=== PATIENT | male | born 1950 | race Caucasian/White ===

== ENCOUNTER 2017-04-03 17:27 | Emergency (ER) | payer MEDICARE, BC ==
--- NOTE | 2017-04-03 17:55 | RAD ---
PORTABLE CHEST: 04/03/17 HISTORY: Chest pain. COMPARISON: 03/13/14 study. Herat size is within normal limits. There is elevation of the right hemidiaphragm. There is some line ar scarring in the right base. A dorsal column stimulator is present. IMPRESSION: No active intrathoracic disease. POS: [facility]
[2017-04-03 18:19] LABS: #Eosinphils 0.2 thou/uL (0.0-0.7); #Lymphocytes 1.1 thou/uL (1.20-3.40); #Monocytes 0.6 thou/uL (0.11-0.59); #Neutrophils 2.3 thou/uL (1.40-6.50); %Basophils 0.2 % (0.0-1.0); %Eosinophils 4.8 % (0.0-10.0); %Monocytes 13.1 % (0.0-10.0); Hematocrit 44.9 % (42.0-52.0); Mean Platelet Volume 8.1 fL (7.4-10.4); Red Blood Cell (RBC) Count 4.64 mill/uL (4.70-6.10); White Blood Cell (WBC) Count 4.2 thou/uL (4.8-10.8)
[2017-04-03 18:46] LABS: ALT (SGPT) 22 U/L (8-55); AST (SGOT) 20 U/L (5-34); Alkaline Phosphatase 50 U/L (40-150); Anion Gap 9 mmol/L (10-20); BUN (Urea Nitrogen) 14 mg/dL (8.4-25.7); Bilirubin, Total 0.4 mg/dL (0.2-1.2); CK (CPK) 69 U/L (30-200); Calc. Creatinine Clearance 0 mL/min (70-130); Calcium 9.3 mg/dL (7.8-10.44); Carbon Dioxide 32 mmol/L (23-31); Chloride 100 mmol/L (98-107); Estimated GFR-MDRD 69; Globulin 2.9 g/dL (2.4-3.5); Lipase 17 U/L (8-78); Protein, Total 6.6 g/dL (5.8-8.1)
[2017-04-03 18:49] LABS: Troponin I Less than 0.010 ng/mL (< 0.028)
[2017-04-03] MEDS ORDERED: Ketorolac Tromethamine 30 MG/ML VIAL ONE (19:03)
== END 2017-04-03 19:14 | disposition home or self-care (01) ==
LOC: ERS 17:27
DX: R07.89 Other chest pain (principal); I10 Essential (primary) hypertension; E03.9 Hypothyroidism, unspecified; E11.9 Type 2 diabetes mellitus without complications; E78.5 Hyperlipidemia, unspecified; F41.9 Anxiety disorder, unspecified; F32.9 Major depressive disorder, single episode, unspecified
CPT/HCPCS: 36415; 71010; 80053; 82553; 83690; 84484; 85025; 93005; 94760; 96374; J1885

== ENCOUNTER 2018-06-11 09:23 | Outpatient (CLI) | payer MEDICARE, BC ==
[2018-06-11] MEDS ORDERED: ISOVUE-370 76%-LOCM 1 ML ONE (10:00)
--- NOTE | 2018-06-11 11:34 | CT ---
CT BRAIN WITH AND WITHOUT CONTRAST: DATE: 06-11-17 HISTORY: 68-year-old male with R55 syncope and collapse, C25.2 other specific forms of tremor. TECHNIQUE: Precontrast scan of brain IV injection iodinated contrast media: 70 ml Isovue 370 Postcontrast scan of brain FINDINGS: There is no midline shift or any other mass effect. There is no evidence of acute intracranial hemor rhage, large cortical infarct, obstructive hydrocephalus, or extraaxial fluid collection. There is n o abnormal enhancement or mass. The calvarium is intact. There are two subcentimeter focal hypodense intraaxial lesions adjacent to each other in the left abbott radiata, near the junction with the ant erior portion of the insula and superior border of basal ganglia. These are probable small old lacuna r infarctions although the location is not typical. There is no interval change overall since 09-04-13 . IMPRESSION: 1. No acute or aggressive intracranial findings. 2. Two adjacent tiny old probable lacunae in the left deep cerebral white matter. lee POS: [facility]
== END 2018-06-11 09:24 | disposition home or self-care (01) ==
LOC: BICCT 09:23
PROVIDERS: ATTEND Psychiatry & Neurology Neurology
DX: G25.2 Other specified forms of tremor (principal); R55 Syncope and collapse
CPT/HCPCS: 70470; 82565; Q9966

== ENCOUNTER 2020-12-01 01:36 | Inpatient (IN) | payer MEDICARE, BC ==
[2020-12-01 02:15] LABS: Actual Bicarbonate (HCO3v) 21 mEq/L (22-28); Analyzer IN Cardio ER; Base Excess -2.5 mEq/L (-2.0 to +3.0); Calcium, Ionized (venous) 1.02 mmol/L (1.16-1.32); Chloride (VBG) 106 mmol/L (98-106); Hemoglobin (Hb) 13.6 g/dL (12.6-17.4); Potassium (VBG) 3.82 mmol/L (3.70-5.30); Sodium 138.2 mmol/L (133-146); pH (venous) 7.43 (7.32-7.43)
[2020-12-01 02:18] LABS: #Basophils 0.1 thou/uL (0.0-0.2); #Eosinphils 0.3 thou/uL (0.0-0.7); #Lymphocytes 1.2 thou/uL (1.20-3.40); #Monocytes 0.6 thou/uL (0.11-0.59); #Neutrophils 4.1 thou/uL (1.40-6.50); %Basophils 0.9 % (0.0-1.0); %Eosinophils 4.8 % (0.0-10.0); %Lymphocytes 18.6 % (21.0-51.0); %Monocytes 9.8 % (0.0-10.0); %Neutrophils 65.8 % (42.0-75.0); Hemoglobin 12.6 g/dL (14.0-18.0); Mean Corpuscular HGB CONC 33.5 g/dL (32.0-36.0); Mean Corpuscular Hemoglobin 31.4 pg (27.0-31.0); Mean Corpuscular Volume 93.8 fL (78.0-98.0); Mean Platelet Volume 7.7 fL (7.4-10.4); Platelet Count 185 thou/uL (130-400); RBC Distribution Width 11.9 % (11.5-14.5); White Blood Cell (WBC) Count 6.2 thou/uL (4.8-10.8)
[2020-12-01 02:31] LABS: INR-International Normal Ratio 0.8; Prothrombin Time 11.3 sec (12.0-14.7)
[2020-12-01 02:39] LABS: Phosphorus 4.1 mg/dL (2.3-4.7)
[2020-12-01 02:40] LABS: PTT 19.3 sec (22.9-36.1)
[2020-12-01 02:41] LABS: ALT (SGPT) 21 U/L (8-55); AST (SGOT) 19 U/L (5-34); Albumin 3.6 g/dL (3.4-4.8); Alkaline Phosphatase 65 U/L (40-110); Anion Gap 16 mmol/L (10-20); BUN (Urea Nitrogen) 18 mg/dL (8.4-25.7); Bilirubin, Total 0.2 mg/dL (0.2-1.2); Calc. Creatinine Clearance 0 mL/min (70-130); Carbon Dioxide 21 mmol/L (23-31); Chloride 105 mmol/L (98-107); Globulin 3.4 g/dL (2.4-3.5); Glucose 124 mg/dL (83-110); Lipase 25 U/L (8-78); Magnesium 1.6 mg/dL (1.6-2.6); Potassium 3.9 mmol/L (3.5-5.1); Sodium 138 mmol/L (136-145)
[2020-12-01] MEDS ORDERED: Enoxaparin Sodium 80 MG/0.8 ML SYRINGE ONE (04:40)
[2020-12-01 04:50] LABS: SARS-CoV-2 NAA Rapid Test Not Detected (NotDetected)
[2020-12-01 05:33] LABS: Lactic Acid 2.7 mmol/L (0.5-2.2)
[2020-12-01] MEDS ORDERED: Iopamidol-370 76% 500 ML 1 ML ONE (09:53)
[2020-12-01 17:37] VITALS: BMI 25.9
[2020-12-01] MEDS ORDERED: Acetaminophen 500 MG TAB PO PRN (19:31)
[2020-12-01] MEDS ORDERED: Ondansetron PF 4 MG/2 ML Vial IVP PRN (19:31)
[2020-12-01] MEDS ORDERED: Dextrose 5% in Water 1,000 ML IV PRN (19:31)
[2020-12-01] MEDS ORDERED: HumaLOG 300 UNITS/3 ML VIAL SC PRN (19:31)
[2020-12-01] MEDS ORDERED: Dextrose 50% Abboject 50 ML SYRINGE SLOW IVP PRN (19:31)
[2020-12-01] MEDS ORDERED: Ondansetron ODT 4 MG TAB PO PRN (19:31)
[2020-12-01] MEDS ORDERED: Polyethylene Glycol 3350 17 GM Packet PO PRN (19:31)
[2020-12-01] MEDS ORDERED: hydrALAZINE 20 MG/ML VIAL SLOW IVP PRN (19:31)
[2020-12-01] MEDS ORDERED: predniSONE 20 MG TAB PO SCH (20:00)
[2020-12-01] MEDS ORDERED: metFORMIN 500 MG TAB PO SCH (20:30)
[2020-12-01] MEDS ORDERED: busPIRone HCl 10 MG TAB PO SCH (21:00)
[2020-12-01] MEDS ORDERED: Mirtazapine 30 MG Soltab PO SCH ×2 (21:00→23:59)
[2020-12-01] MEDS: DULoxetine 60 MG CAP PO SCH (21:52)
[2020-12-01] MEDS: Gabapentin 300 MG CAP PO SCH (21:52)
[2020-12-01] MEDS: Carvedilol 6.25 MG TAB PO SCH (21:53)
[2020-12-01] MEDS: clonazePAM 0.5 MG TAB PO SCH (21:54)
[2020-12-01] MEDS: Enoxaparin Sodium 80 MG/0.8 ML SYRINGE SC SCH (21:54)
[2020-12-02] MEDS: Sodium Chloride 0.9% 1,000 ML IV SCH ×7 (03:22→18:30)
[2020-12-02 05:07] LABS: #Eosinphils 0.1 thou/uL (0.0-0.7); #Lymphocytes 0.7 thou/uL (1.20-3.40); #Monocytes 0.2 thou/uL (0.11-0.59); #Neutrophils 3.9 thou/uL (1.40-6.50); %Basophils 0.3 % (0.0-1.0); %Eosinophils 1.8 % (0.0-10.0); %Lymphocytes 14.2 % (21.0-51.0); %Monocytes 3.2 % (0.0-10.0); %Neutrophils 80.6 % (42.0-75.0); Hemoglobin 11.9 g/dL (14.0-18.0); Mean Corpuscular HGB CONC 33.3 g/dL (32.0-36.0); Mean Corpuscular Hemoglobin 31.1 pg (27.0-31.0); Mean Corpuscular Volume 93.5 fL (78.0-98.0); Mean Platelet Volume 7.4 fL (7.4-10.4); Platelet Count 179 thou/uL (130-400); RBC Distribution Width 11.7 % (11.5-14.5); Red Blood Cell (RBC) Count 3.82 mill/uL (4.70-6.10); White Blood Cell (WBC) Count 4.8 thou/uL (4.8-10.8)
[2020-12-02 05:30] LABS: ALT (SGPT) 16 U/L (8-55); AST (SGOT) 12 U/L (5-34); Albumin 3.3 g/dL (3.4-4.8); Alkaline Phosphatase 62 U/L (40-110); Anion Gap 9 mmol/L (10-20); BUN (Urea Nitrogen) 11 mg/dL (8.4-25.7); Bilirubin, Total 0.3 mg/dL (0.2-1.2); Calc. Creatinine Clearance 88 mL/min (70-130); Calcium 8.8 mg/dL (7.8-10.44); Carbon Dioxide 29 mmol/L (23-31); Chloride 106 mmol/L (98-107); Globulin 3.1 g/dL (2.4-3.5); Glucose 240 mg/dL (83-110); Potassium 4.3 mmol/L (3.5-5.1); Protein, Total 6.4 g/dL (5.8-8.1); Sodium 140 mmol/L (136-145)
[2020-12-02] MEDS: Levothyroxine Sodium 75 MCG TAB PO SCH (05:38)
[2020-12-02] MEDS: HumaLOG 300 UNITS/3 ML VIAL SC PRN ×3 (06:11→17:38)
[2020-12-02] MEDS: Enoxaparin Sodium 80 MG/0.8 ML SYRINGE SC SCH (08:46)
[2020-12-02] MEDS: Gabapentin 300 MG CAP PO SCH ×3 (08:46→22:31)
[2020-12-02] MEDS: Cyanocobalamin (Vitamin B-12) 1,000 MCG TAB PO SCH (08:47)
[2020-12-02] MEDS: metFORMIN 500 MG TAB PO SCH ×2 (08:47→16:03)
[2020-12-02] MEDS: predniSONE 20 MG TAB PO SCH (08:47)
[2020-12-02] MEDS: DULoxetine 60 MG CAP PO SCH ×2 (08:47→21:20)
[2020-12-02] MEDS: Aspirin Chewable 81 MG TAB PO SCH (08:47)
[2020-12-02] MEDS: Carvedilol 6.25 MG TAB PO SCH (08:47)
[2020-12-02] MEDS: Cholecalciferol 1,000 UNITS (25 MCG) TAB PO SCH (08:47)
[2020-12-02] MEDS: clonazePAM 0.5 MG TAB PO SCH ×3 (08:48→21:19)
[2020-12-02] MEDS ORDERED: traMADol HCl 50 MG TAB PO PRN (09:10)
[2020-12-02] MEDS: Apixaban 5 MG TAB PO SCH ×2 (09:11→21:19)
[2020-12-02] MEDS: Mometasone 100 MCG/Formoterol 5 MCG 120 PUFF INHALER INH SCH (17:56)
[2020-12-02] MEDS ORDERED: FISH OIL PO SCH (21:00)
[2020-12-02] MEDS ORDERED: Mirtazapine 30 MG Soltab PO SCH (21:00)
[2020-12-02] MEDS ORDERED: EPA PO SCH (21:00)
[2020-12-02] MEDS ORDERED: DHA PO SCH (21:00)
[2020-12-02] MEDS ORDERED: Simvastatin 10 MG TAB PO SCH (21:00)
[2020-12-02] MEDS ORDERED: OMEGA PO SCH (21:00)
[2020-12-02] MEDS ORDERED: [UNRECOGNIZED DRUG - OTHER] PO SCH (21:00)
[2020-12-02] MEDS ORDERED: Fish Oil 1,000 MG CAP PO SCH (21:00)
[2020-12-02] MEDS: Propranolol 10 MG TAB PO SCH (21:19)
[2020-12-02] MEDS ORDERED: Benzonatate 100 MG CAP PO PRN (22:20)
[2020-12-03 04:50] LABS: Hemoglobin 10.9 g/dL (14.0-18.0); Platelet Count 198 thou/uL (130-400)
[2020-12-03] MEDS: Levothyroxine Sodium 75 MCG TAB PO SCH (05:19)
[2020-12-03] MEDS: Sodium Chloride 0.9% 1,000 ML IV SCH (05:20)
[2020-12-03] MEDS: Mometasone 100 MCG/Formoterol 5 MCG 120 PUFF INHALER INH SCH (07:01)
[2020-12-03 07:35] VITALS: BP 136/67; TEMP 97.8
[2020-12-03] MEDS: clonazePAM 0.5 MG TAB PO SCH (08:17)
[2020-12-03] MEDS: Aspirin Chewable 81 MG TAB PO SCH (08:43)
[2020-12-03] MEDS: Gabapentin 300 MG CAP PO SCH (08:43)
[2020-12-03] MEDS: DULoxetine 60 MG CAP PO SCH (08:43)
[2020-12-03] MEDS: Cholecalciferol 1,000 UNITS (25 MCG) TAB PO SCH (08:44)
[2020-12-03] MEDS: Apixaban 5 MG TAB PO SCH (08:44)
[2020-12-03] MEDS: metFORMIN 500 MG TAB PO SCH (08:44)
[2020-12-03] MEDS: Cyanocobalamin (Vitamin B-12) 1,000 MCG TAB PO SCH (08:44)
[2020-12-03] MEDS: predniSONE 20 MG TAB PO SCH (08:44)
[2020-12-03] MEDS: Propranolol 10 MG TAB PO SCH (08:45)
[2020-12-03] MEDS ORDERED: Ascorbic Acid 500 mg Chewable Tablet PO SCH (09:00)
[2020-12-03] MEDS ORDERED: MED PO SCH (09:00)
[2020-12-03] MEDS ORDERED: Amlodipine 5 MG TAB PO SCH (09:00)
[2020-12-03] MEDS ORDERED: Non-Formulary Item 1 EACH (Magnesium Oxide [Magnesium] 400 MG Capsule) PO SCH (09:00)
== END 2020-12-03 11:11 | disposition home or self-care (01) | DRG 871 ==
LOC: ERS 01:36 → ERHOLD 04:52 → 2NO 17:00
PROVIDERS: ADMIT Internal Medicine; ATTEND Internal Medicine
DX: A41.9 Sepsis, unspecified organism (principal); J96.21 Acute and chronic respiratory failure with hypoxia; I26.99 Other pulmonary embolism without acute cor pulmonale; J69.0 Pneumonitis due to inhalation of food and vomit; E11.9 Type 2 diabetes mellitus without complications; E03.9 Hypothyroidism, unspecified; E78.5 Hyperlipidemia, unspecified; I10 Essential (primary) hypertension; E78.00 Pure hypercholesterolemia, unspecified; G89.29 Other chronic pain; F32.9 Major depressive disorder, single episode, unspecified; F41.9 Anxiety disorder, unspecified; J47.9 Bronchiectasis, uncomplicated; Z86.73 Personal history of transient ischemic attack (TIA), and cerebral infarction without residual deficits; Z90.49 Acquired absence of other specified parts of digestive tract; Z85.46 Personal history of malignant neoplasm of prostate; Z88.8 Allergy status to other drugs, medicaments and biological substances
CPT/HCPCS: 0240U; 36415; 36416; 71045; 71275; 74230; 80053; 82550; 82805; 83605; 83690; 83735; 83880; 84100; 84484; 85014; 85018; 85025; 85049; 85379; 85610; 85730; 87040; 93005; 93306; 93970; 94640; 96365; 96372; J1650; J1815; J1956; J7050; J7512; J7620; Q9967

== ENCOUNTER 2022-01-02 20:47 | Observation (INO) | payer MEDICARE, BC ==
[~2022-01-02 20:47] MED LIST: Iopamidol-370 76% 500 ML 1 ML ONE
[2022-01-02 21:24] LABS: #Eosinphils 0.6 thou/uL (0.0-0.7); #Lymphocytes 1.5 thou/uL (1.20-3.40); #Monocytes 0.7 thou/uL (0.11-0.59); #Neutrophils 5.2 thou/uL (1.40-6.50); %Basophils 0.3 % (0.0-1.0); %Eosinophils 7.7 % (0.0-10.0); %Lymphocytes 18.2 % (21.0-51.0); %Monocytes 9.2 % (0.0-10.0); %Neutrophils 64.6 % (42.0-75.0); Hemoglobin 11.4 g/dL (14.0-18.0); Mean Corpuscular HGB CONC 31.7 g/dL (32.0-36.0); Mean Corpuscular Hemoglobin 31.4 pg (27.0-31.0); Mean Corpuscular Volume 98.9 fL (78.0-98.0); Mean Platelet Volume 7.2 fL (7.4-10.4); Platelet Count 260 thou/uL (130-400); RBC Distribution Width 12.2 % (11.5-14.5); Red Blood Cell (RBC) Count 3.63 mill/uL (4.70-6.10); White Blood Cell (WBC) Count 8.1 thou/uL (4.8-10.8)
[2022-01-02 21:45] LABS: ALT (SGPT) 16 U/L (8-55); AST (SGOT) 13 U/L (5-34); Albumin 3.5 g/dL (3.4-4.8); Alkaline Phosphatase 55 U/L (40-110); Anion Gap 17 mmol/L (10-20); BUN (Urea Nitrogen) 17 mg/dL (8.4-25.7); Bilirubin, Total 0.2 mg/dL (0.2-1.2); Calc. Creatinine Clearance 0 mL/min (70-130); Calcium 9.3 mg/dL (7.8-10.44); Carbon Dioxide 22 mmol/L (23-31); Chloride 103 mmol/L (98-107); Estimated GFR 76; Globulin 3.1 g/dL (2.4-3.5); Glucose 194 mg/dL (83-110); Potassium 3.6 mmol/L (3.5-5.1); Protein, Total 6.6 g/dL (5.8-8.1); Sodium 138 mmol/L (136-145)
[2022-01-02] MEDS ORDERED: Lidocaine 1% PF 5 ML VIAL ONE (21:56)
[2022-01-02] MEDS ORDERED: Lidocaine 2% PF 5 ML VIAL ONE (22:04)
[2022-01-02] MEDS ORDERED: Boostrix 0.5 ML (Tdap) VIAL (>/=7 yrs of age) ONE (22:04)
[2022-01-03] MEDS ORDERED: Ondansetron ODT 4 MG TAB PO PRN (02:28)
[2022-01-03] MEDS ORDERED: Acetaminophen 325 MG TAB PO PRN (02:28)
[2022-01-03] MEDS ORDERED: Ondansetron PF 4 MG/2 ML Vial IVP PRN (02:28)
[2022-01-03] MEDS ORDERED: Acetaminophen 650 MG Suppository PR PRN (02:28)
[2022-01-03 02:52] LABS: Troponin I Less than 0.010 ng/mL (< 0.028)
[2022-01-03 03:45] VITALS: BMI 25.7
[2022-01-03] MEDS ORDERED: Dextrose 50% Abboject 50 ML SYRINGE SLOW IVP PRN (03:45)
[2022-01-03] MEDS ORDERED: Dextrose 5% in Water 1,000 ML IV PRN (03:45)
[2022-01-03] MEDS ORDERED: HumaLOG 300 UNITS/3 ML VIAL SC PRN ×2 (03:45)
[2022-01-03] MEDS ORDERED: Sodium Chloride 0.9% 1,000 ML IV SCH (04:15)
[2022-01-03 05:00] LABS: #Eosinphils 0.5 thou/uL (0.0-0.7); #Lymphocytes 1.2 thou/uL (1.20-3.40); #Monocytes 0.7 thou/uL (0.11-0.59); #Neutrophils 5.7 thou/uL (1.40-6.50); %Basophils 0.3 % (0.0-1.0); %Eosinophils 6.3 % (0.0-10.0); %Lymphocytes 14.5 % (21.0-51.0); %Monocytes 8.3 % (0.0-10.0); %Neutrophils 70.7 % (42.0-75.0); Hemoglobin 11.5 g/dL (14.0-18.0); Mean Corpuscular Hemoglobin 31.5 pg (27.0-31.0); Mean Corpuscular Volume 98.2 fL (78.0-98.0); Mean Platelet Volume 6.9 fL (7.4-10.4); Platelet Count 246 thou/uL (130-400); RBC Distribution Width 12.2 % (11.5-14.5); Red Blood Cell (RBC) Count 3.64 mill/uL (4.70-6.10)
[2022-01-03 05:18] LABS: Anion Gap 14 mmol/L (10-20); BUN (Urea Nitrogen) 16 mg/dL (8.4-25.7); Calc. Creatinine Clearance 79 mL/min (70-130); Calcium 9.1 mg/dL (7.8-10.44); Carbon Dioxide 25 mmol/L (23-31); Chloride 102 mmol/L (98-107); Estimated GFR 91; Glucose 277 mg/dL (83-110); Potassium 4.1 mmol/L (3.5-5.1); Sodium 137 mmol/L (136-145)
[2022-01-03 05:29] LABS: Troponin I Less than 0.010 ng/mL (< 0.028)
[2022-01-03] MEDS ORDERED: ALCOHOL ANTISEPTIC PADS TP PRN (13:57)
[2022-01-03] MEDS ORDERED: Non-Formulary Item 1 EACH (Albuterol Sulfate [Proair Digihaler] 90 MCG Aer.Pw.Bas) IH PRN (13:57)
[2022-01-03] MEDS ORDERED: [UNRECOGNIZED DRUG - OTHER] MC SCH (14:00)
[2022-01-03] MEDS ORDERED: Ferrous Sulfate 325 MG TAB PO SCH (15:00)
[2022-01-03 16:21] VITALS: BP 151/72; TEMP 98.2
[2022-01-03] MEDS ORDERED: Albuterol Sulfate 2.5 mg/3 ml Neb NEB SCH (18:30)
[2022-01-03] MEDS ORDERED: DULoxetine 60 MG CAP PO SCH (21:00)
[2022-01-03] MEDS ORDERED: clonazePAM 0.5 MG TAB PO SCH (21:00)
[2022-01-03] MEDS ORDERED: Mirtazapine 15 MG TAB PO SCH (21:00)
[2022-01-03] MEDS ORDERED: Meloxicam 15 MG TAB PO SCH (21:00)
[2022-01-03] MEDS ORDERED: Atorvastatin Calcium 10 MG TAB PO SCH (21:00)
[2022-01-04] MEDS ORDERED: Levothyroxine Sodium 75 MCG TAB PO SCH (06:00)
[2022-01-04] MEDS ORDERED: Calcium Carbonate 600 MG TAB PO SCH (09:00)
[2022-01-04] MEDS ORDERED: Cholecalciferol 1,000 UNITS (25 MCG) TAB PO SCH (09:00)
[2022-01-04] MEDS ORDERED: Aspirin 81 mg Enteric Coated Tablet PO SCH (09:00)
[2022-01-04] MEDS ORDERED: Stress 600 With Zinc 1 TAB PO SCH (09:00)
[2022-01-04] MEDS ORDERED: Ascorbic Acid 500 mg Chewable Tablet PO SCH (09:00)
[2022-01-04] MEDS ORDERED: Magnesium Oxide 400 MG TAB PO SCH (09:00)
== END 2022-01-03 17:55 | disposition home or self-care (01) ==
LOC: ERS 20:47 → 2NO 01-03 01:41
PROVIDERS: ADMIT Internal Medicine; ATTEND Internal Medicine
DX: S01.111A Laceration without foreign body of right eyelid and periocular area, initial encounter (principal); R55 Syncope and collapse; Z20.822 Contact with and (suspected) exposure to COVID-19; I10 Essential (primary) hypertension; E03.9 Hypothyroidism, unspecified; E11.9 Type 2 diabetes mellitus without complications; E78.5 Hyperlipidemia, unspecified; M48.12 Ankylosing hyperostosis [Forestier], cervical region; M47.812 Spondylosis without myelopathy or radiculopathy, cervical region; J90 Pleural effusion, not elsewhere classified; Z79.4 Long term (current) use of insulin; D50.9 Iron deficiency anemia, unspecified; Z79.82 Long term (current) use of aspirin; Z79.890 Hormone replacement therapy; Z79.899 Other long term (current) drug therapy; W19.XXXA Unspecified fall, initial encounter; Z88.8 Allergy status to other drugs, medicaments and biological substances
CPT/HCPCS: 70450; 70486; 71275; 72125; 80048; 80053; 82962; 84484 ×3; 85025 ×2; 90715; 93005; 93306; 97110; G0378 ×2; U0003; U0005; 12013; 36415; 36416; 90471; J1815; J2001; J7050; Q9967